=== PATIENT | male | born 1955 | race Caucasian/White ===

== ENCOUNTER → 2021-10-08 | Day surgery (SDC) | payer MEDICARE, OTHER ==
[~2021-10-08] VITALS: Ht 157.5 cm; Wt 54.4 kg
[~2021-10-08] MED LIST: AMOXICILLIN500 MG PO; ASCORBIC ACID500 MG PO; ASPIRIN EC81 MG PO; B12 ACTIVE1000 MCG PO; CETIRIZINE HCL10 MG PO; EMERGEN-C ELEC1 EACH PO; FEOSOL325 MG PO; FLONASE ALLER15.8 ML; HCTZ12.5 MG PO; LEXAPRO20 MG PO; MELATONIN5 M2 PO; NORVASC5 MG PO; PLAVIX75 MG PO; PRINIVIL20 MG PO; PROTONIX 40MG T40 MG PO; VITAMIN D325 MC4 PO; WELLBUTRIN XL150 MG PO; ZINC50 M1 PO
[2021-10-08 09:20] LABS: BUN/CREAT RATIO (CALC) 14.7 RATIO; CREATININE 0.68 mg/dL (0.67-1.17); POTASSIUM 4.2 mmol/L (3.5-5.1)
[2021-10-08 10:10] LABS: HCT 32.7 % (42.0-52.0); HGB 11.5 g/dl (13.2-18.0); MCH 31.5 pg (25.0-31.0); MCHC 35.2 g/dL (32.0-36.0); MCV 89.6 fL (78.0-100.0); MPV 9.3 fL (6.0-9.5); RBC 3.65 M/uL (4.70-6.00); RDW 13.5 % (11.5-14.0); WBC 8.2 K/uL (4.0-10.5)
== END | disposition home or self-care (01) ==
LOC: FAS 08:04
PROVIDERS: Oral & Maxillofacial Surgery
DX: K02.9 Dental caries, unspecified (principal); K04.7 Periapical abscess without sinus; N40.0 Benign prostatic hyperplasia without lower urinary tract symptoms; F17.210 Nicotine dependence, cigarettes, uncomplicated; G47.30 Sleep apnea, unspecified; I10 Essential (primary) hypertension; M41.9 Scoliosis, unspecified; Z86.73 Personal history of transient ischemic attack (TIA), and cerebral infarction without residual deficits; Z88.8 Allergy status to other drugs, medicaments and biological substances
CPT/HCPCS: 36415; 71045; 80048; 85730; 93005; J1100; J2250; J2405; J2704; J3010; J7120